=== PATIENT | male | born 1935 | race Caucasian/White ===

== ENCOUNTER 2018-07-09 11:59 | Day surgery (SDC) | payer MEDICARE, OTHER, SELFPAY ==
[2018-07-09] VITALS (7 sets, daily range): BP systolic 103–145; BP diastolic 59–93; PULSE 68–88; RESP 13–24; TEMP 36.3–37.1; O2SAT 94–100; BMI 32.2
--- NOTE | 2018-07-09 | PATH_ITS ---
[facility] Accession Number: [id number] . 01 Material submitted: . PART A: duodenum - DUODENAL NODULE PART B: gastrointestinal site - GASTRIC . 01 Clinical history: . A: RULE OUT ADENOMA B: FOR H. PYLORI . 02 Diagnosis: A. Duodenum, Nodule, Biopsy: Duodenal mucosa with gastric surface foveolar metaplasia and reactive epithelial changes. Negative for intraepithelial lymphocytosis or villous blunting. Negative for dysplasia and malignancy. . B. Stomach, Biopsies: Body-type mucosa with no diagnostic abnormality. No evidence of Helicobacter by immunohistochemistry. Negative for intestinal metaplasia. Negative for dysplasia and malignancy. [facility]/07/11/2018 . 02 Electronically signed: . Emma Alonso MD, Pathologist NPI- [id number] . 01 Gross description: . Part A: DUODENAL NODULE: Received in formalin is 1 fragment(s) of villa, soft tissue measuring 0.2 x 0.1 x 0.1 cm which is entirely submitted and submitted entirely in 1 cassette(s) Part B: GASTRIC: Received in formalin are 3 fragment(s) of villa, soft tissue measuring 0.1 x 0.1 x 0.1 cm to 0.3 x 0.2 x 0.2 cm which is entirely submitted and submitted entirely in 1 cassette(s) /[facility] /[facility] . 02 Microscopic: . An immunohistochemical stain was performed to evaluate for Helicobacter organisms and is negative. The control stain showed appropriate reactivity. . * This test was developed and its performance characteristics determined by [employer]. It has not been cleared or approved by the U.[place]. Food and Drug Administration. The FDA has determined that such clearance or approval is not necessary. This test is used for clinical purposes. It should not be regarded as investigational or for research. . 02 Pathologist provided ICD-10: R10.9 . 02 CPT . 992102, 997101, [id number] Performed at: 01 [facility] [address] [place] [address], [place], [place] [id number] MD Mikel George MD Phone: [phone] Performed at: [address] [facility] [id number] [place], [place] [id number] MD Emma Alonso MD Phone: [phone]
--- NOTE | 2018-07-09 12:11 | P.HP_ITS ---
History of Present Illness Date Patient Seen: 07/09/18 Chief complaint: 68018 EGD Narrative: 82-year-old male seen at our office on 06/12/[address] Borges who is here for generalized abdominal pain, weight loss, and history of duodenal bulb ulcer. Please refer to our office note 06/12/2018 for further details Meds Allergies Allergy/AdvReac Type Severity Reaction Status Date / Time adhesive tape Allergy Verified 07/08/18 15:43 Penicillins Allergy Verified 07/08/18 15:43 Exam Narrative Exam Narrative: General: Patient is well developed, not in apparent distress Cardiovascular: Normal rate, no murmurs, rubs, or gallops; no evidence of edema; no palpable abdominal aortic aneurysm Gastrointestinal: Normoactive bowel sounds, soft, nontender, nondistended, no rebound tenderness, no hepatosplenomegaly, no evidence of hernia Assessment & Plan Assessment & Plan narrative: 82-year-old male on anticoagulation who is here for upper endoscopy due to abdominal pain, decreased appetite, weight loss, and history of a duodenal bulb ulcer. Regarding the procedure(s), the risks and potential complications, benefits, and alternatives (including not doing the procedure) were discussed with the patient. The risks include but are not limited to bleeding, splenic injury, inf ection, perforation which may require surgical intervention, missed lesions, and adverse reactions to sedative medicines. After a question and answer period, the patient agreed to proceed with the procedure(s) and gives informed consent.
[2018-07-09] MEDS: SODIUM CHLORIDE 0.9% 1,000 ML 70 ML IV (12:59)
[2018-07-09] MEDS: fentaNYL 250 MCG/5 ML INJ IV (13:45)
[2018-07-09] MEDS: MIDAZOLAM 5 MG/5 ML VIAL IV (13:45)
--- NOTE | 2018-07-09 13:59 | PM.OP.ENDO ---
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 The procedure was discussed in detail with the patient. The potential risks and complications including infection, bleeding, missed lesions, perforation, need for surgery in case of perforation, prolonged hospital stay, and were explained. A brief question and answer period was allotted and once all questions were answered, informed consent was obtained. The patient was brought back to the procedure room and placed on standard monitoring. The patient?s vital signs were monitored continuously throughout the entire procedure. Prior to starting, a timeout was performed to confirm the patient?s identity, allergies, medications, and procedure. Procedure in detail The patient was placed in left lateral decubitus position and a bite block was inserted. The tip of the upper endoscope was placed into the mouth and advanced without difficulty under direct visualization into the esophagus. Esophagus: The visualized esophagus appeared normal Stomach: There was note of multiple small erosions in the body and antrum of the stomach; biopsies were taken to rule out H pylori Duodenum: There was note of edema and erythema and small erosions in the duodenal bulb. In the 2nd portion of the duodenum there was note of a prominent minor papilla versus duodenal nodule. Biopsies were taken to rule out any recurrent adenoma. The patient tolerated the procedure well and will be brought back to the recovery area to be discharged once criteria are met. The total physician intraservice time was 21 minutes. Complications There were no complications and estimated blood loss was minimal. Recommendations: Resume previous diet Continue outPx medications; resume Eliquis tonight Follow up pathology results Office follow up with Dr. Chávez at the next available visit (Px to call our office to schedule). An emergency contact number was given to the patient for any complications related to the procedure
--- NOTE | 2018-07-09 14:05 | PM.DS.1 ---
History of Present Illness Chief complaint: 99143 EGD Narrative: 82-year-old male seen at our office on 06/12/[address] Borges who is here for generalized abdominal pain, weight loss, and history of duodenal bulb ulcer. Please refer to our office note 06/12/2018 for further details Discharge Providers Discharge Date: 07/09/18 Primary care physician: Royce Ramos MD Discharge provider: Alonzo Worley MD Exam Vital Signs (past 8 hours): - 07/09/18 12:36 07/09/18 14:00 Temperature 97.4 F L 98.3 F Pulse Rate 86 88 Respiratory Rate 18 21 Blood Pressure 145/93 H 107/69 Pulse Oximetry 100 94 Oxygen Delivery Method Nasal Cannula Oxygen Flow Rate 4 Narrative Exam Narrative: General: Patient is well developed, not in apparent distress Cardiovascular: Irregularly irregular rhythm, normal rate, no murmurs, rubs, or gallops; no evidence of edema; no palpable abdominal aortic aneurysm Gastrointestinal: Normoactive bowel sounds, soft, nontender, nondistended, no rebound tenderness, no hepatosplenomegaly, no evidence of hernia Discharge Plan Discharge Plan Patient Disposition: Home Discharge Med Rec/Prescriptions Follow up/Referrals: Royce Ramos MD [Primary Care Provider] - Discharge Orders: Discharge (Order); Ordered 07/09/18 Ordered By: Alonzo Worley Provider Discharge Instructions Diet: Diet as Tolerated Discharge Data Primary Care Provider: Royce Ramos Attending Provider: Alonzo Worley
--- NOTE | 2018-07-09 14:22 | SUR.PHASEI ---
PT TOLERATING SIPS OF WATER WITHOUT DIFFICULTY
== END 2018-07-09 15:06 | disposition home or self-care (01) ==
PROVIDERS: PCP Internal Medicine Geriatric Medicine; Visit Provider Internal Medicine Gastroenterology
PROC: 0DJ08ZZ Inspection of Upper Intestinal Tract, Via Natural or Artificial Opening Endoscopic (ICD-10-PCS; CPT 43235; principal; 2018-07-09 13:00)
DX: K29.90 Gastroduodenitis, unspecified, without bleeding (principal); Z87.11 Personal history of peptic ulcer disease; I48.2 Chronic atrial fibrillation; Z79.01 Long term (current) use of anticoagulants; E03.9 Hypothyroidism, unspecified; E63.8 Other specified nutritional deficiencies; G47.30 Sleep apnea, unspecified; Z86.711 Personal history of pulmonary embolism
CPT/HCPCS: 43239; 88305; 88342; J2250; J3010

== ENCOUNTER → 2019-03-02 14:25 | Outpatient (CLI) | payer MEDICARE, OTHER, SELFPAY ==
[2019-03-02 16:02] LABS: BUN Creatinine Ratio 18.2 (6-22); Blood Urea Nitrogen 20 mg/dL (9-20); Carbon Dioxide 27 mmol/L (22-32); Chloride 105 mmol/L (98-107); Estimated Glomerular Filt Rate > 60.0 mL/min (>60); Glucose 122 mg/dL (80-110); HEMOLYSIS < 15 (0-50); Magnesium 1.8 mg/dL (1.6-2.3); Potassium 4.3 mmol/L (3.4-5.1); Sodium 139 mmol/L (137-145)
== END ==
PROVIDERS: PCP Internal Medicine Geriatric Medicine; Visit Provider Internal Medicine Cardiovascular Disease
DX: R06.02 Shortness of breath (principal); I27.20 Pulmonary hypertension, unspecified; I48.20 Chronic atrial fibrillation, unspecified
CPT/HCPCS: 36415; 80048; 83735